=== PATIENT | male | born 1935 | race Caucasian/White ===

== ENCOUNTER 2016-11-04 09:53 | Emergency (ER) | payer MEDICARE, OTHER ==
[2016-11-04 10:15] VITALS: TEMP 97.4; BMI 25.0
[2016-11-04 10:29] LABS: AUTOMATED BASOPHIL 0.8 % (0-2); AUTOMATED EOSINOPHIL 2.6 % (0-5); AUTOMATED LYMPH 15.3 % (17-44); AUTOMATED MONOCYTE 5.8 % (3-10); AUTOMATED NEUTROPHIL 75.5 % (45-76); MPV 8.2 fL (7.4-10.4)
[2016-11-04 10:50] LABS: BLOOD UREA NITROGEN 26 MG/DL (9-20); CALC CORRECTED 9.5 MG/DL (8.4-10.2); CALCIUM 8.9 MG/DL (8.4-10.2); CALCULATED OSMOLALITY 273 MOs/Kg (270-290); CHLORIDE 103 mEq/L (98-107); GLUCOSE 174 MG/DL (70-99); SODIUM LEVEL 137 mEq/L (137-146); TOTAL PROTEIN 6.2 G/DL (6.3-8.2)
--- NOTE | 2016-11-04 11:10 | EDPRACDOC ---
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 Mode Of Arrival: Ambulance Home Medications: Home Medications Amlodipine [Norvasc] 5 mg PO DAILY 10/28/12 Aspirin [Chewable Aspirin] 81 mg PO BID 10/28/12 Carvedilol [Coreg] 25 mg PO BID 10/28/12 Glipizide [Glipizide Xl] 10 mg PO BID(AUDREY) 10/28/12 Lisinopril/Hydrochlorothiazide [Lisinopril-Hctz 20-25 mg Tab] 1 tab PO DAILY 08/30 Omeprazole 20 mg PO DAILY 10/28/12 Cholecalciferol (Vitamin D3) [Vitamin D3] 2,000 unit PO DAILY 11/04/16 Insulin Glargine [Lantus] 10 units SQ HS 11/04/16 Insulin Glargine,Hum.rec.anlog [Lantus] 14 - 16 unit SQ DAILY 11/04/16 Saxagliptin HCl [Onglyza] 5 mg PO DAILY 11/04/16 Allergies/Adverse Reactions: Allergies Allergy/AdvReac Type Severity Reaction Status Date / Time No Known Allergies Allergy Verified 10/28/12 09:42 - History of Present 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 THE PT SAID THAT HE FEELS FINE NOW. HE HAD JUST HAD BLOOD DRAWN WHEN THIS EVENT OCCURRED. THE PT SAID THAT HE DID NOT EAT THIS AM IN ANTICIPATION OF GIVING BLOOD. Presyncopal phase:: Reports: Premonition Postsyncopal phase:: Reports: Delayed recovery Associated Signs/Symptoms: Reports: None - Treatment Prior to ED Arrival Reported Medications/Treatment [employer] Treatment ALS IV Yes ED Past Medical History - Patient Medical History Cardiac History: Reports: Hypertension, Heart Attack, CABG Musculoskeletal History: Reports: Osteoarthritis Psychological History: Denies: Depression Systemic History: Reports: Cancer, Diabetes Surgical History: Reports: CABG - Social Medical History Smoking Status: Former smoker ETOH: None Substance Abuse: None Lives With: Spouse Lives In: Home EDM Review of Systems - Review of Systems ROS Negative Except as Marked: Yes All systems reviewed and were negative except as marked - Physical Exam Constitutional: Alert (Awake), No apparent distress Oriented to: Time, Person, Place Last recorded Vital Signs: Last Vital Signs Temp 97.4 F L 11/04/16 10:13 Pulse 56 L 11/04/16 10:13 Resp 18 11/04/16 10:13 BP 142/66 11/04/16 10:13 Pulse Ox 99 11/04/16 10:13 Oxygen Pulse Oxygen Saturation 99 O2 Device Room Air Oxygen Flow Rate Fraction of Inspired Oxygen ( FIO2) - HEENT Head: Normal ( normocephalic) Eye Exam: Normal (PERRL, EOMI, Sclera white) Oropharynx: Normal (Pharynx:Moist without exudate,Gums-no swelling) ENT EAC: Normal TMJ: Normal Nose: No Symptoms Reported (septum midline) Neck: Normal (FROM, trachea at midline) - Respiratory/Cardiovascular Respiratory: Normal - CTA (BBS clear to auscultation without adventitious sounds ) Cardiovascular: Normal (RRR without murmur, gallop or rub) - GI Auscultation: Normal (NABS) Palpation: Normal (Soft,No rebound or guarding, non distended) Tenderness: Non tender Costa's Sign: Negative - Musculoskeletal Back: Normal (Non-Tender) Extremities: Normal (Normal tone, Pulses 2+ No cyanosis or edema, FROM) - Integumentary Skin: Normal, Warm, Dry Lymphatics: Normal (no adenopathy) - Neurologic Memory Impaired: Normal Motor Function: Normal (Normal tone, Pulses 2+ No cyanosis or edema, FROM) Cranial Nerve: Normal (CN II-X11 intact sensation, strength 5/5) Cerebellar: Normal Mood Description: Normal Thought: Coherent Perception: Normal - Results 11/04/16 10:15 11/04/16 10:15 WBC 11.0 xk/uL (3.8-10.8) H 11/04/16 10:15 RBC 3.92 xM/uL (4.70-6.10) L 11/04/16 10:15 Hgb 12.6 g/dL (14.0-18.0) L 11/04/16 10:15 Hct 37.0 % (42-52) L 11/04/16 10:15 MCV 94 fL (80-94) 11/04/16 10:15 MCH 32.1 pg (27-32) H 11/04/16 10:15 MCHC 34.1 g/dl (33-36) 11/04/16 10:15 RDW 13.5 % (11.5-14.5) 11/04/16 10:15 Plt Count 190 xk/uL (130-400) 11/04/16 10:15 MPV 8.2 fL (7.4-10.4) 11/04/16 10:15 Neut % (Auto) 75.5 % (45-76) 11/04/16 10:15 Lymph % (Auto) 15.3 % (17-44) L 11/04/16 10:15 Bibb % (Auto) 5.8 % (3-10) 11/04/16 10:15 Eos % (Auto) 2.6 % (0-5) 11/04/16 10:15 Baso % (Auto) 0.8 % (0-2) 11/04/16 10:15 Absolute Neuts (auto) 8.25 xk/uL (1.7-8.2) H 11/04/16 10:15 Absolute Lymphs (auto) 1.65 xk/uL (0.65-4.75) 11/04/16 10:15 PT 10.5 SEC (9.2-11.2) 11/04/16 10:15 INR 1.0 11/04/16 10:15 APTT 21.0 SEC (22-35) L 11/04/16 10:15 Sodium 137 mEq/L (137-146) 11/04/16 10:15 Potassium 4.5 mEq/L (3.5-5.1) 11/04/16 10:15 Chloride 103 mEq/L (98-107) 11/04/16 10:15 Carbon Dioxide 24 mMOL/L (22-33) 11/04/16 10:15 Anion Gap 15 mEq/L (8-16) 11/04/16 10:15 BUN 26 MG/DL (9-20) H 11/04/16 10:15 Creatinine 1.30 MG/DL (0.66-1.25) H 11/04/16 10:15 Estimated GFR (MDRD) 53 mL/min (>=60) L 11/04/16 10:15 Glucose 174 MG/DL (70-99) H 11/04/16 10:15 Calculated Osmolality 273 MOs/Kg (270-290) 11/04/16 10:15 Calcium 8.9 MG/DL (8.4-10.2) 11/04/16 10:15 Corrected Calcium 9.5 MG/DL (8.4-10.2) 11/04/16 10:15 Total Bilirubin 0.8 MG/DL (0.2-1.3) 11/04/16 10:15 AST 38 IU/L (17-59) 11/04/16 10:15 ALT 35 IU/L (21-72) 11/04/16 10:15 Alkaline Phosphatase 90 IU/L (50-160) 11/04/16 10:15 Troponin I 0.02 ng/mL (<.04) 11/04/16 10:15 Total Protein 6.2 G/DL (6.3-8.2) L 11/04/16 10:15 Albumin 3.4 G/DL (3.5-5.0) L 11/04/16 10:15 Lab Results 11/04/16 11/04/16 11/04/16 10:15 10:15 10:15 WBC 11.0 H RBC 3.92 L Hgb 12.6 L Hct 37.0 L MCV 94 MCH 32.1 H MCHC 34.1 RDW 13.5 Plt Count 190 MPV 8.2 Neut % (Auto) 75.5 Lymph % (Auto) 15.3 L Bibb % (Auto) 5.8 Eos % (Auto) 2.6 Baso % (Auto) 0.8 Absolute Neuts (auto) 8.25 H Absolute Lymphs (auto) 1.65 PT 10.5 INR 1.0 APTT 21.0 L Sodium 137 Potassium 4.5 Chloride 103 Carbon Dioxide 24 Anion Gap 15 BUN 26 H Creatinine 1.30 H Estimated GFR (MDRD) 53 L Glucose 174 H Calculated Osmolality 273 Calcium 8.9 Corrected Calcium 9.5 Total Bilirubin 0.8 AST 38 ALT 35 Alkaline Phosphatase 90 Troponin I 0.02 Total Protein 6.2 L Albumin 3.4 L - EKG EKG #1 EKG Time: 10:28 -: Yes EKG interpreted by me Rate: bpm: 59 [place]: Normal Rhythm: SB Block: None Hypertrophy: None ST: Normal Comparison: 01/26/08 - Additional Information CT HEAD: NO ACUTE Decision Time to Discharge: 12:50 - Departure Yes I personally saw and evaluated the patient. Disposition: Home Condition: Fair Final Diagnosis: Near syncope Instructions: Near Syncope (ED) Education/Counseling Given To: Patient Education/Counseling Given Regarding: Diagnosis, Treatment, Follow Up Referrals: Cisco Rockwell MD [Primary Care Provider] - One Week
[2016-11-04 12:24] LABS: RBC/URINE 0-2 (0-2); WBC/URINE 0-2 (0-2)
[2016-11-04 12:26] LABS: LEUKOCYTES/URINE NEG (NEGATIVE); NITRITE/URINE NEG (NEGATIVE); URINE OCCULT BLOOD NEG (NEG/TRACE)
[2016-11-04 13:22] VITALS: BP 137/63; PULSE 65
--- NOTE | 2016-11-04 14:29 | DIRPT ---
CLINICAL DATA: Near syncope EXAM: PORTABLE CHEST 1 VIEW COMPARISON: Chest x-ray dated 01/26/2008. FINDINGS: Heart size is upper normal, stable. Overall cardiomediastinal silhouette is stable in size and configuration. Median sternotomy wires appear intact and stable in alignment. Lungs are clear. Lung volumes appear normal. No pleural effusion seen. No pneumothorax seen. Osseous structures about the chest are unremarkable. IMPRESSION: Lungs are clear and there is no evidence of acute cardiopulmonary abnormality. Electronically Signed By: Sim Meyer M.D. On: 11/04/2016 14:26
--- NOTE | 2016-11-04 15:04 | DIRPT ---
CLINICAL DATA: Dizziness. Syncope x2 over the past 3 weeks. History of non melanoma skin cancer. EXAM: CT HEAD WITHOUT CONTRAST TECHNIQUE: Contiguous axial images were obtained from the base of the skull through the vertex without intravenous contrast. COMPARISON: None. FINDINGS: Sinuses/Soft tissues: Clear paranasal sinuses and mastoid air cells. Intracranial: Cerebral and cerebellar volume loss is expected for age. Mild low density in the periventricular white matter likely related to small vessel disease. No mass lesion, hemorrhage, hydrocephalus, acute infarct, intra-axial, or extra-axial fluid collection. IMPRESSION: 1. No acute intracranial abnormality. 2. Small vessel ischemic change. Electronically Signed By: Tarun Davis M.D. On: 11/04/2016 15:01
== END 2016-11-04 13:21 | disposition home or self-care (01) ==
LOC: ED 09:53
DX: R55 Syncope and collapse (principal)
CPT/HCPCS: 36415; 70450; 71010; 80053; 81001; 84484; 85025; 85610; 85730; 93005; 99284